=== PATIENT | male | born 1960 | race Caucasian/White ===

== ENCOUNTER 2017-06-19 15:13 | Emergency (ER) | payer SELFPAY ==
[2017-06-19 15:20] VITALS: BP 126/69; PULSE 114; RESP 16; TEMP 98.6; O2SAT 96
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
[2017-06-19] MEDS ORDERED: ACETAMINOPHEN 325 MG TAB PO ONE (17:15)
== END 2017-06-19 17:24 | disposition home or self-care (01) ==
LOC: NEPK 15:13
DX: M79.671 Pain in right foot (principal); M79.672 Pain in left foot; F17.200 Nicotine dependence, unspecified, uncomplicated; Z59.0 Homelessness
CPT/HCPCS: 99281

== ENCOUNTER 2017-08-13 11:57 | Emergency (ER) | payer SELFPAY ==
[2017-08-13 12:21] VITALS: BP 159/84; PULSE 99; RESP 18; TEMP 98.8; O2SAT 99
[2017-08-13] MEDS ORDERED: CEPH-460 PO (13:05)
[2017-08-13] MEDS ORDERED: BACT800T5 PO (13:05)
--- NOTE | 2017-08-13 13:05 | PD ---
HPI Chief Complaint: Skin Problem Time Seen by Provider: 12:30 Travel History International Travel<30 days: No Contact w/Intl Traveler<30days: No Traveled to known affect area: No History of Present Illness HPI 50-year-old male here with possible infected insect bite to his left third digit and left elbow. He denies fever or chills. The areas of present for approximately 4 days. Symptoms severity is mild. No aggravating or alleviating factors. PFSH Past Medical History Medical History: Denies Significant Hx Tetanus Vaccination: Unknown Past Surgical History Abdominal Surgery: Yes (HERNIA) Social History Alcohol Use: Yes Tobacco Use: Yes Substance Use: No Allergies-Medications (Allergen,Severity, Reaction): Coded Allergies: No Known Allergies (Unverified , 08/13/17) Reported Meds & Prescriptions Reported Meds & Active Scripts Active Keflex (Cephalexin) 500 Mg Capsule 500 Mg PO Q6H 10 Days Bactrim DS (Sulfamethoxazole-Trimethoprim) 800-160 Mg Tab 1 Tab PO BID Review of Systems Except as stated in HPI: all other systems reviewed are Neg General / Constitutional: No: Fever Physical Exam Narrative GENERAL: Alert and well-appearing 56-year-old male SKIN: Warm and dry. SKIN: There is an indurated area in the left third digit dorsal aspect which measures about 1 cm in diameter. It is indurated with a central scab. There is a zone of inflammation around it but no lymphangitis. He is able to flex and extend the finger without difficulty. HEAD: Normocephalic. EYES: No injection or drainage. NECK: Supple CARDIOVASCULAR: Regular rate and rhythm RESPIRATORY: Breath sounds equal bilaterally. No accessory muscle use. GASTROINTESTINAL: Abdomen soft, non-tender, nondistended. MUSCULOSKELETAL: No cyanosis, or edema. Data Data Last Documented VS Vital Signs Date Time Temp Pulse Resp B/P (MAP) Pulse Ox O2 Delivery O2 Flow Rate FiO2 08/13/17 12:21 98.8 99 18 159/84 (109) 99 MDM Medical Decision Making Medical Screen Exam Complete: Yes Emergency Medical Condition: Yes Differential Diagnosis Abscess, cellulitis, infected insect bite Narrative Course 56-year-old male here with early abscess to the left third digit. He is nontoxic appearing. He can freely move the digit. The area is indurated without fluctuance. Incision and drainage not warranted at this time. The area has a small central scab which patient reports spontaneously drained. He has no fever chills. He'll be started on Bactrim and Keflex. Diagnosis Primary Impression: Abscess Referrals: [facility] Additional Instructions: Antibiotics as directed. Washing area daily with soap and water. Review of new or worsening symptoms Scripts Cephalexin (Keflex) 500 Mg Capsule 500 MG PO Q6H for Infection for 10 Days, #40 CAP 0 Refills Prov: Fouzia Fields 08/13/17 Sulfamethoxazole-Trimethoprim (Bactrim DS) 800-160 Mg Tab 1 TAB PO BID for Infection, #20 TAB 0 Refills Prov: Fouzia Fields 08/13/17 Disposition: 01 DISCHARGE HOME Condition: Stable Fouzia Fields Aug 13, 2017 13:05
== END 2017-08-13 13:26 | disposition home or self-care (01) ==
LOC: NEPK 11:57 → MERGE 11:57 → NEPK 13:26
DX: L02.512 Cutaneous abscess of left hand (principal); Z72.0 Tobacco use
CPT/HCPCS: 99283

== ENCOUNTER 2017-09-27 08:51 | Observation (INO) | payer SELFPAY ==
[~2017-09-27] VITALS: Ht 172.7 cm; Wt 63.8 kg
[~2017-09-27 08:51] MED LIST: BACT800T5 PO; CEPH-460 PO
[2017-09-27 08:58] VITALS: BP 111/72; PULSE 105; RESP 18; TEMP 97.8; O2SAT 95
[2017-09-27 09:24] VITALS: RESP 16; O2SAT 89
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
[2017-09-27] MEDS ORDERED: SODIUM CHLOR 0.9% 1000 ML INJ 1,000 ML IV ONE (09:30)
[2017-09-27 09:49] LABS: AUTOMATED NEUTROPHIL # 7.8 TH/MM3 (1.8-7.7); BASOPHIL # 0.1 TH/MM3 (0-0.2); BASOPHIL % 0.7 % (0.0-2.0); EOSINOPHIL # 0.1 TH/MM3 (0-0.4); EOSINOPHIL % 0.8 % (0.0-4.0); HEMATOCRIT 40.3 % (39.0-51.0); HEMOGLOBIN 13.5 GM/DL (13.0-17.0); LYMPH % 13.9 % (9.0-44.0); LYMPHOCYTE # 1.4 TH/MM3 (1.0-4.8); MEAN CELL VOLUME 84.4 FL (80.0-100.0); MEAN CORPUSCULAR HEMOGLOBIN 28.3 PG (27.0-34.0); MEAN CORPUSCULAR HGB CONC 33.5 % (32.0-36.0); MEAN PLATELET VOLUME 8.1 FL (7.0-11.0); MONO % 6.9 % (0.0-8.0); MONOCYTE # 0.7 TH/MM3 (0-0.9); NEUT % 77.7 % (16.0-70.0); PLATELET COUNT 361 TH/MM3 (150-450); RED BLOOD COUNT 4.77 MIL/MM3 (4.50-5.90); RED CELL DISTRIBUTION WIDTH 14.3 % (11.6-17.2)
--- NOTE | 2017-09-27 09:52 | RADRPT ---
EXAM DATE/TIME: 09/27/2017 09:32 [facility] COMPARISON: No previous studies available for comparison. INDICATIONS : Seizure today, fall. RADIATION DOSE: 56.35 CTDIvol (mGy) MEDICAL HISTORY : None SURGICAL HISTORY : None. ENCOUNTER: Initial ACUITY: 1 day PAIN SCALE: 3/10 LOCATION: cranial TECHNIQUE: Multiple contiguous axial images were obtained of the head. Using automated exposure control and adj ustment of the mA and/or kV according to patient size, radiation dose was kept as low as reasonably a chievable to obtain optimal diagnostic quality images. DICOM format image data is available electro nically for review and comparison. FINDINGS: CEREBRUM: The ventricles are normal for age. No evidence of midline shift, mass lesion, hemorrhage or acute in farction. No extra-axial fluid collections are seen. POSTERIOR FOSSA: The cerebellum and brainstem are intact. The 4th ventricle is midline. The cerebellopontine angle i s unremarkable. EXTRACRANIAL: The visualized portion of the orbits is intact. SKULL: The calvaria is intact. No evidence of skull fracture. CONCLUSION: Normal examination. Ace Mendez MD on September 27, 2017 at 9:50 Board Certified Radiologist. This report was verified electronically.
--- NOTE | 2017-09-27 09:54 | RADRPT ---
EXAM DATE/TIME: 09/27/2017 09:32 [facility] COMPARISON: No previous studies available for comparison. INDICATIONS : Seizure today, fall. RADIATION DOSE: 18.26 CTDIvol (mGy) MEDICAL HISTORY : None SURGICAL HISTORY : None. ENCOUNTER: Initial ACUITY: 1 day PAIN SCALE: 3/10 LOCATION: neck TECHNIQUE: Volumetric scanning of the cervical spine was performed. Multiplanar reconstructions in the sagittal, coronal and oblique axial planes were performed. Using automated exposure control and adjustment o f the mA and/or kV according to patient size, radiation dose was kept as low as reasonably achievable to obtain optimal diagnostic quality images. DICOM format image data is available electronically f or review and comparison. FINDINGS: VERTEBRAE: Normal vertebral body height. There is discogenic sclerosis and narrowing at the C5-6 and C6-7 levels ALIGNMENT: No evidence of subluxation. C2-C3: The bony spinal canal is normal in size. No evidence of disc bulge or herniation. The neural forami na are bilaterally patent. C3-C4: The bony spinal canal is normal in size. No evidence of disc bulge or herniation. The neural forami na are bilaterally patent. C4-C5: The bony spinal canal is normal in size. No evidence of disc bulge or herniation. The neural forami na are bilaterally patent. C5-C6: The bony spinal canal is normal in size. No evidence of disc bulge or herniation. The neural forami na are bilaterally patent. C6-C7: The bony spinal canal is normal in size. No evidence of disc bulge or herniation. The neural forami na are bilaterally patent. C7-T1: The bony spinal canal is normal in size. No evidence of disc bulge or herniation. The neural forami na are bilaterally patent. CONCLUSION: Normal examination for acute injury. Chronic degenerative disease at the C5-6 and C6-7. Ace Mendez MD on September 27, 2017 at 9:51 Board Certified Radiologist. This report was verified electronically.
--- NOTE | 2017-09-27 09:57 | RADRPT ---
EXAM DATE/TIME: 09/27/2017 09:27 [facility] COMPARISON: No previous studies available for comparison. INDICATIONS : Syncopal episode. MEDICAL HISTORY : None. SURGICAL HISTORY : Hernia repair. Bilateral knee. ENCOUNTER: Initial ACUITY: 1 day PAIN SCORE: 0/10 LOCATION: Bilateral chest FINDINGS: A single view of the chest demonstrates the lungs to be symmetrically aerated without evidence of mas s, infiltrate or effusion. The cardiomediastinal contours are unremarkable. Osseous structures are intact. CONCLUSION: Normal examination. Ace Mendez MD on September 27, 2017 at 9:55 Board Certified Radiologist. This report was verified electronically.
[2017-09-27 09:58] LABS: PROTHROMBIN TIME - PATIENT 10.2 SEC (9.8-11.6)
--- NOTE | 2017-09-27 10:00 | RADRPT ---
EXAM DATE/TIME: 09/27/2017 09:32 [facility] COMPARISON: No previous studies available for comparison. INDICATIONS : Seizure today, fall. RADIATION DOSE: 21.96 CTDIvol (mGy) MEDICAL HISTORY : None SURGICAL HISTORY : None. ENCOUNTER: Initial ACUITY: 1 day PAIN SCORE: 3/10 LOCATION: facial TECHNIQUE: Volumetric scanning of the facial bones was performed. Using automated exposure control and adjustme nt of the mA and/or kV according to patient size, radiation dose was kept as low as reasonably achiev able to obtain optimal diagnostic quality images. DICOM format image data is available electronicall y for review and comparison. FINDINGS: ORBITS: The orbital and infraorbital osseous structures are intact. The retroconal structures have a normal configuration. No radiopaque foreign bodies are seen. NASAL BONE: The maxillary spine are intact. Questionable fracture at the base of the right nasal bone of no clini noah significance ZYGOMATIC ARCHES: Symmetric without evidence of fracture. SINUSES: The maxillary, ethmoid and frontal sinuses are intact. No air-fluid levels seen. NASAL CAVITY: The nasal septum is intact and midline. The lacrimal ducts are intact. SOFT TISSUES: No radiopaque foreign bodies seen. No soft-tissue swelling is seen. INTRACRANIAL: No intracranial air seen. CRIBIFORM PLATE: Grossly intact. CONCLUSION: Normal examination except for questionable nondisplaced fracture at the base of the right nasal bone. Ace Mendez MD on September 27, 2017 at 9:57 Board Certified Radiologist. This report was verified electronically.
[2017-09-27 10:14] LABS: ALBUMIN 3.1 GM/DL (3.4-5.0); ALT (GPT) 25 U/L (12-78); AST (GOT) 28 U/L (15-37); CALCIUM 8.6 MG/DL (8.5-10.1); CHLORIDE 105 MEQ/L (98-107); CREATININE 1.13 MG/DL (0.60-1.30); GLOMERULAR FILTRATION RATE 67 ML/MIN (>89); GLUCOSE,RANDOM 124 MG/DL (74-106); MAGNESIUM 2.6 MG/DL (1.5-2.5); PHOSPHORUS 2.6 MG/DL (2.5-4.9); SODIUM (NA) 136 MEQ/L (136-145)
[2017-09-27 10:15] LABS: ALKALINE PHOSPHATASE 68 U/L (45-117); BLOOD UREA NITROGEN 9 MG/DL (7-18); TOTAL BILIRUBIN ADULT 0.3 MG/DL (0.2-1.0)
[2017-09-27] MEDS ORDERED: SODIUM CHLORIDE 0.9% FLUSH 10 ML FLUSH IV FLUSH PRN (11:00)
[2017-09-27] MEDS ORDERED: ONDANSETRON HCL 4 MG/2 ML VIAL IV PUSH PRN (11:00)
[2017-09-27] MEDS ORDERED: LORazepam 2 MG/ML VIAL IV PUSH PRN (11:00)
[2017-09-27 11:27] VITALS: BP 115/71; PULSE 72; RESP 18; O2SAT 99
[2017-09-27 13:10] VITALS: BP 109/69; PULSE 91; RESP 16; O2SAT 98
--- NOTE | 2017-09-27 15:23 | HHI.HP ---
HPI Service [facility] Hospitalists Primary Care Physician No Primary Care Physician Admission Diagnosis New onset seizure. Diagnoses: Chief Complaint: Seizure Travel History International Travel<30 Days: No Contact w/Intl Traveler <30 Da: No Traveled to Known Affected Are: No History of Present Illness 56-year-old male brought into the emergency room by EMS after reported seizure. Apparently patient was witnessed having generalized tonic-clonic activity by a bystander. He was postictal and had urinary incontinence during the episode. Patient tells me he does not remember the event. He states he does not drink alcohol every day, only occasionally will have one 16 ounce of beer. He denies drug use. He denies feeling lightheadedness, shortness of breath or chest pain. He suffered an abrasion from the event but otherwise no other complaints. Review of Systems Constitutional: DENIES: Fever, Chills Ears, nose, mouth, throat: DENIES: Vertigo Respiratory: DENIES: Shortness of breath Cardiovascular: DENIES: Chest pain, Palpitations Neurologic: COMPLAINS OF: Seizures, DENIES: Headache, Localized weakness Except as stated in HPI: all other systems reviewed are Neg Past Family Social History Past Medical History History of meningitis as an per the patient Spinal stenosis Past Surgical History Bilateral hernia repair Repair of lower jaw after injuries from a dog bite. Reported Medications None Allergies: Coded Allergies: No Known Allergies (Unverified Allergy, Unknown, 09/27/17) Per pt. Family History Reviewed and is found to be noncontributory. Social History Patient admits to smoking cigarettes when he can find them. He admits to drinking alcohol occasionally but denies daily use. He denies illicit drug use. Physical Exam Vital Signs Vital Signs Date Time Temp Pulse Resp B/P (MAP) Pulse Ox O2 Delivery O2 Flow Rate FiO2 09/27/17 13:23 09/27/17 13:10 91 16 109/69 (82) 98 Nasal Cannula 2.00 09/27/17 11:27 72 18 115/71 (86) 99 Nasal Cannula 2.00 09/27/17 09:24 16 89 Nasal Cannula 2.00 09/27/17 09:04 105 18 96 Room Air 09/27/17 08:58 97.8 105 18 111/72 (55) 95 Physical Exam GENERAL: Disheveled male SKIN: Abrasions of the forehead and nose. HEAD: Atraumatic. Normocephalic. No temporal or scalp tenderness. EYES: Pupils equal round and reactive. Extraocular motions intact. No scleral icterus. No injection or drainage. ENT: Nose without bleeding, purulent drainage or septal hematoma. Throat without erythema, tonsillar hypertrophy or exudate. Uvula midline. Airway patent. NECK: Trachea midline. No JVD or lymphadenopathy. Supple, nontender, no meningeal signs. CARDIOVASCULAR: Regular rate and rhythm without murmurs, gallops, or rubs. RESPIRATORY: Clear to auscultation. Breath sounds equal bilaterally. No wheezes , rales, or rhonchi. GASTROINTESTINAL: Abdomen soft, non-tender, nondistended. No hepato-splenomegaly , or palpable masses. No guarding. MUSCULOSKELETAL: Extremities without clubbing, cyanosis, or edema. No joint tenderness, effusion, or edema noted. No calf tenderness. Negative Homans sign bilaterally. NEUROLOGICAL: Awake and alert. Cranial nerves II through XII intact. Motor and sensory grossly within normal limits. Five out of 5 muscle strength in all muscle groups. Normal speech. Laboratory Laboratory Tests Test 09/27/17 09:20 White Blood Count 10.0 Red Blood Count 4.77 Hemoglobin 13.5 Hematocrit 40.3 Mean Corpuscular Volume 84.4 Mean Corpuscular Hemoglobin 28.3 Mean Corpuscular Hemoglobin Concent 33.5 Red Cell Distribution Width 14.3 Platelet Count 361 Mean Platelet Volume 8.1 Neutrophils (%) (Auto) 77.7 Lymphocytes (%) (Auto) 13.9 Monocytes (%) (Auto) 6.9 Eosinophils (%) (Auto) 0.8 Basophils (%) (Auto) 0.7 Neutrophils # (Auto) 7.8 Lymphocytes # (Auto) 1.4 Monocytes # (Auto) 0.7 Eosinophils # (Auto) 0.1 Basophils # (Auto) 0.1 CBC Comment DIFF FINAL Differential Comment Prothrombin Time 10.2 Prothromb Time International Ratio 1.0 Activated Partial Thromboplast Time 24.5 Blood Urea Nitrogen 9 Creatinine 1.13 Random Glucose 124 Total Protein 7.0 Albumin 3.1 Calcium Level 8.6 Phosphorus Level 2.6 Magnesium Level 2.6 Alkaline Phosphatase 68 Aspartate Amino Transf (AST/SGOT) 28 Alanine Aminotransferase (ALT/SGPT) 25 Total Bilirubin 0.3 Sodium Level 136 Potassium Level 3.8 Chloride Level 105 Carbon Dioxide Level 18.0 Anion Gap 13 Estimat Glomerular Filtration Rate 67 Thyroid Stimulating Hormone 3rd Gen 1.320 Ethyl Alcohol Level LESS THAN 3 Result Diagram: 09/27/1791909/27/17919 Imaging Last Impressions Maxillofacial CT 09/27/17916 Signed Impressions: Service Date/Time: September 09:32 - CONCLUSION: Normal examination except for questionable nondisplaced fracture at the base of the right nasal bone. Ace Mendez MD Head CT 09/27/17916 Signed Impressions: Service Date/Time: September 09:32 - CONCLUSION: Normal examination. Ace Mendze MD Chest X-Ray 09/27/17916 Signed Impressions: Service Date/Time: September 09:27 - CONCLUSION: Normal examination. cAe Mendez MD Cervical Spine CT 09/27/17916 Signed Impressions: Service Date/Time: September 09:32 - CONCLUSION: Normal examination for acute injury. Chronic degenerative disease at the C5-6 and C6- 7. MD Wily Christy VTE Risk Assessment Wily VTE Risk Assessment: No/Low Risk (score <= 1) Caprini Risk Assessment Model Point Value = 1 Point Value = 2 Point Value = 3 Point Value = 5 Age 41-60 Minor surgery BMI > 25 kg/m2 Swollen legs Varicose veins or History of unexplained or recurrent spontaneous Oral contraceptives or hormone replacement Sepsis (< 1 month) Serious lung disease, including pneumonia (< 1 month) Abnormal pulmonary function Acute myocardial infarction Congestive heart failure (< 1 month) History of inflammatory bowel disease Medical patient at bed rest Age 61-74 Arthroscopic surgery Major open surgery (> 45 min) Laparoscopic surgery (> 45 min) Malignancy Confined to bed (> 72 hours) Immobilizing plaster cast Central venous access Age >= 75 History of VTE Family history of VTE Factor V Leiden Prothrombin [id number] Lupus anticoagulant Anticardiolipin antibodies Elevated serum homocysteine Heparin-induced thrombocytopenia Other congenital or acquired thrombophilia Stroke (< 1 month) Elective arthroplasty Hip, pelvis, or leg fracture Acute spinal cord injury (< 1 month) Prophylaxis Regimen Total Risk Factor Score Risk Level Prophylaxis Regimen 0-1 Low Early ambulation 2 Moderate Order ONE of the following: *Sequential Compression Device (SCD) *Heparin 5000 units SQ BID 3-4 Higher Order ONE of the following medications: *Heparin 5000 units SQ TID *Enoxaparin/Lovenox 40 mg SQ daily (WT < 150 kg, CrCl > 30 mL/min) *Enoxaparin/Lovenox 30 mg SQ daily (WT < 150 kg, CrCl > 10-29 mL/min) *Enoxaparin/Lovenox 30 mg SQ BID (WT < 150 kg, CrCl > 30 mL/min) AND/OR *Sequential Compression Device (SCD) 5 or more Highest Order ONE of the following medications: *Heparin 5000 units SQ TID (Preferred with Epidurals) *Enoxaparin/Lovenox 40 mg SQ daily (WT < 150 kg, CrCl > 30 mL/min) *Enoxaparin/Lovenox 30 mg SQ daily (WT < 150 kg, CrCl > 10-29 mL/min) *Enoxaparin/Lovenox 30 mg SQ BID (WT < 150 kg, CrCl > 30 mL/min) AND *Sequential Compression Device (SCD) Assessment and Plan Problem List: (1) Seizure ICD Code: R56.9 - Unspecified convulsions Status: Acute Plan: Possible seizure per report. No history of seizure. He does drink alcohol but he reports this is infrequent. Head CT, cervical spine CT with no acute findings Admit for observation. Seizure precautions EEG, telemetry Consult neurology Check EtOH level and urine drug screen Maisha Wade MD Sep 27, 2017 15:23
[2017-09-27 16:00] VITALS: BP 121/57; PULSE 90; RESP 18; TEMP 97.9; O2SAT 97
--- NOTE | 2017-09-27 16:15 | EKG ---
Date Performed: 09/27/2017 Time Performed: 09:17:18 PTAGE: 56 years EKG: SINUS TACHYCARDIA POSSIBLE LEFT ATRIAL ENLARGEMENT ST DEVIATION AND MODERATE T-WAVE ABNORMA LITY, CONSIDER LATERAL ISCHEMIA ABNORMAL ECG INTERPRETATION BASED ON A DEFAULT AGE OF 40 YEARS NO PREVIOUS TRACING DOCTOR: Colton Kendall Interpretating Date/Time 09/27/2017 16:14:16
--- NOTE | 2017-09-27 16:17 | MB ---
cc: Marilee Kline MD DATE: 09/27/2017 REASON FOR CONSULTATION: Possible seizures. HISTORY OF PRESENT ILLNESS: A 56-year-old man apparently homeless, was witnessed somewhere along [address] and [address]. Per patient, he was walking there in the evening, apparently was witnessed per chart notes by bystanders having a generalized tonic-clonic seizure. He states he has never had a seizure. He does not remember feeling ill, dizzy. No chest pain, shortness of breath. The episode lasted for unknown length of time, apparently noted to be postictal afterwards with some urinary incontinence. His Accu-Chek was 149. He came in I am told lethargic, but was answering questions, denying any type of pain. He has a history per chart of meningitis as a baby, has had hernia repair, jaw repair. SOCIAL HISTORY: He states that he drinks rarely, maybe 1-2 drinks, but not daily. Smokes up to a pack a day. He denies drugs. ALLERGIES: NONE REPORTED. MEDICATIONS: No active medicines. PHYSICAL EXAMINATION: VITAL SIGNS: His temperature is 97.8, pulse 91, respiratory rate 16, blood pressure 109/69, saturating at 98 percent on room air. GENERAL: He is awake and alert. NECK: Supple. HEART: Regular. NEUROLOGIC: Fluent. He has abrasions over his forehead and facial region, probably from falling. Pupils reactive. Tongue midline. There is no laceration of the tongue. Motor: He moves everything equally. No tremors. Gait is withheld. He has been ambulating in the room, I am told. LABORATORY DATA: Reviewed. IMAGING: Head unremarkable for any acute findings. Maxillofacial CT: Questionable nondisplaced fracture of the base of the right nasal bone. Chest x-ray normal. Cervical spine CT: Degenerative disease, C5-C6, C6-C7, no fracture. IMPRESSION/PLAN: Possible seizure. The patient has no recall of what occurred. Unfortunately, denies any history of chronic alcohol abuse. Denies any history of epilepsy. Recommend getting an EEG, monitoring his neuro status. Ativan p.r.n. if he should have a witnessed seizure. I do not think at this point in time, an antiepileptic is indicated unless he has another event. Watch his heart rate, monitor his vitals, look for any dysrhythmia and if stable and EEG is unremarkable, discharge planning in the next 24 hours. MD SILVINO Paiz/CAROLYN , 04:01 PM , 04:17 PM
[2017-09-27 20:00] VITALS: BP 112/58; PULSE 93; RESP 16; TEMP 97.9; O2SAT 95
[2017-09-27] MEDS: SODIUM CHLORIDE 0.9% FLUSH 10 ML FLUSH IV FLUSH SCH (23:47)
[2017-09-28] VITALS (7 sets, daily range): BP systolic 95–113; BP diastolic 50–68; PULSE 68–82; RESP 18–19; TEMP 97.7–98.9; O2SAT 94–98
[2017-09-28 08:25] LABS: BICARBONATE 24.2 MEQ/L (21.0-32.0); CALCIUM 8.1 MG/DL (8.5-10.1); CREATININE 0.89 MG/DL (0.60-1.30)
[2017-09-28] MEDS ORDERED: PNEUMOCOCCAL POLYVALENT INJ 25 MCG/0.5 ML SYR IM ONE (10:00)
[2017-09-28] MEDS ORDERED: INFLUENZA VIRUS VACCINE (QUADRIVALENT) 0.5 ML SYR IM ONE (10:00)
[2017-09-28] MEDS: SODIUM CHLORIDE 0.9% FLUSH 10 ML FLUSH IV FLUSH SCH ×2 (10:48→21:07)
[2017-09-28 12:43] LABS: BILIRUBIN, URINE NEG (NEG); BLOOD, URINE NEG (NEG); GLUCOSE,URINE NEG (NEG); KETONE, URINE NEG (NEG); MUCUS URINE FEW /lpf (OCC); NITRITE,URINE NEG (NEG); URINE COLOR LIGHT-YELLOW (YELLW/STRAW); URINE LEUKOCYTE ESTERASE NEG (NEG)
--- NOTE | 2017-09-28 15:02 | MG ---
cc: Bayron Schaefer MD, PhD DATE OF STUDY: 09/27/2017 TEST NUMBER: [id number] TECHNIQUE: This is a 17-channel EEG. DESCRIPTION: The background rhythm is a symmetrical alpha rhythm frequency 8-9 Hz. There is sharp activity identified in bilateral parietal area with some degree of phase reversal. This occurs occasionally throughout the tracing, then there is some mild slowing in the theta range. No other abnormalities were identified. INTERPRETATION: Abnormal study, consistent with a probable ictal focus bilaterally. Bayron Schaefer MD, PhD AMBER/JUAN CARLOS , 02:52 PM , 03:01 PM
--- NOTE | 2017-09-28 18:26 | HHI.PR ---
Subjective Remarks Patient reports he is doing okay. Discussed with RN. Some periods of confusions but no reported seizure activities. Objective Vitals Vital Signs Date Time Temp Pulse Resp B/P (MAP) Pulse Ox O2 Delivery O2 Flow Rate FiO2 09/28/17 16:00 98.6 68 18 113/68 (83) 97 09/28/17 12:00 97.7 69 18 95/50 (65) 98 09/28/17 08:00 98.3 71 18 111/63 (79) 94 09/28/17 01:10 98.9 72 19 95/58 (70) 95 09/27/17 20:00 97.9 93 16 112/58 (76) 95 I/O 09/27/17 09/27/17 09/27/17 09/28/17 09/28/17 09/28/17 07:00 15:00 23:00 07:00 15:00 23:00 Intake Total 1000 ml Output Total 500 ml Balance 1000 ml -500 ml Intake IV Total 1000 ml Output Urine Total 500 ml Result Diagram: 09/27/17 0920 09/28/17 0720 Objective Remarks GENERAL: Disheveled male in no acute distress CARDIOVASCULAR: Normal rate and regular rhythm without murmurs, gallops, or rubs. RESPIRATORY: Good respiratory efforts. Breath sounds equal and clear to auscultation bilaterally. GASTROINTESTINAL: Abdomen soft, non-tender, non-distended. Normal active bowel sounds MUSCULOSKELETAL: Extremities without cyanosis, or edema. NEURO: Alert & Oriented x4 to person, place, time, situation. Moves all ext x4 PSYCH: Appropriate mood and affect. A/P Problem List: (1) Seizure ICD Code: R56.9 - Unspecified convulsions Status: Acute Plan: Possible seizure per report. No history of seizure. He does drink alcohol but he reports this is infrequent. Head CT, cervical spine CT with no acute findings Seizure precautions EEG abnormal. Deferred to neurology whether or not he would benefit from antiepileptics. EtOH level and urine drug screen negative Continue to monitor neuro status. RN reports some periods of confusion. Could be postconcussive syndrome. Check B12, folate and TSH. Maisha Wade MD Sep 28, 2017 18:26
[2017-09-28 20:19] LABS: FOLATE 8.9 NG/ML (3.1-17.5)
[2017-09-29] VITALS (10 sets, daily range): BP systolic 110–128; BP diastolic 58–81; PULSE 69–106; RESP 18–20; TEMP 97.6–99.4; O2SAT 95–100
[2017-09-29] MEDS: SODIUM CHLORIDE 0.9% FLUSH 10 ML FLUSH IV FLUSH SCH ×2 (07:34→21:49)
[2017-09-29] MEDS: levETIRAcetam 500 MG TAB PO SCH ×2 (12:20→21:49)
[2017-09-29] MEDS ORDERED: LEVE500 PO (14:55)
--- NOTE | 2017-09-29 14:56 | HHI.PR ---
Subjective Remarks Patient reports he is doing okay. Still having some periods of confusions during our conversation. Objective Vitals Vital Signs Date Time Temp Pulse Resp B/P (MAP) Pulse Ox O2 Delivery O2 Flow Rate FiO2 09/29/17 12:45 106 09/29/17 11:31 99.4 88 20 110/66 (81) 96 09/29/17 09:46 69 09/29/17 08:05 97.8 78 19 112/72 (85) 96 09/29/17 04:43 98.5 74 18 124/70 (88) 95 09/29/17 00:44 98.4 77 18 118/58 (78) 95 09/29/17 00:00 89 09/28/17 21:00 79 09/28/17 20:03 97.7 78 18 96/53 (67) 95 09/28/17 18:01 82 09/28/17 16:00 98.6 68 18 113/68 (83) 97 I/O 09/28/17 09/28/17 09/28/17 09/29/17 09/29/17 09/29/17 07:00 15:00 23:00 07:00 15:00 23:00 # Voids 3 2 Result Diagram: 09/27/17 0920 09/28/17 0720 Objective Remarks GENERAL: Disheveled male in no acute distress CARDIOVASCULAR: Normal rate and regular rhythm without murmurs, gallops, or rubs. RESPIRATORY: Good respiratory efforts. Breath sounds equal and clear to auscultation bilaterally. GASTROINTESTINAL: Abdomen soft, non-tender, non-distended. Normal active bowel sounds MUSCULOSKELETAL: Extremities without cyanosis, or edema. NEURO: Alert & Oriented x4 to person, place, time, situation. Moves all ext x4. Some periods of confusion and tangential conversations. PSYCH: Appropriate mood and affect. A/P Problem List: (1) Seizure ICD Code: R56.9 - Unspecified convulsions Status: Acute Plan: Possible seizure per report. No history of seizure. He does drink alcohol but he reports this is infrequent. Head CT, cervical spine CT with no acute findings Seizure precautions EtOH level and urine drug screen negative Continue to monitor neuro status. some periods of confusion. Could be postconcussive syndrome. EEG abnormal. Patient started on Keppra per neurology. Consult case management to assist with discharge medications. Patient is homeless. B12, folate, TSH unremarkable. Maisha Wade MD Sep 29, 2017 14:56
[2017-09-30 04:38] VITALS: BP 117/62; PULSE 75; RESP 18; TEMP 98.1; O2SAT 96
[2017-09-30 07:37] VITALS: BP 101/63; PULSE 80; RESP 18; TEMP 98.3; O2SAT 95
[2017-09-30] MEDS: levETIRAcetam 500 MG TAB PO SCH (07:39)
[2017-09-30] MEDS: SODIUM CHLORIDE 0.9% FLUSH 10 ML FLUSH IV FLUSH SCH (07:39)
[2017-09-30 08:26] VITALS: PULSE 93
--- NOTE | 2017-09-30 08:50 | HHI.DCPOC ---
Discharge Care Plan Diagnosis: (1) Seizure Goals to Promote Your Health * To prevent worsening of your condition and complications * To maintain your health at the optimal level Directions to Meet Your Goals Take your medications as prescribed Follow your dietary instruction Follow activity as directed Keep your appointments as scheduled Take your immunizations and boosters as scheduled If your symptoms worsen call your PCP, if no PCP go to Urgent Care Center or Emergency Room Smoking is Dangerous to Your Health. Avoid second hand smoke Call the 24-hour hour crisis hotline for domestic abuse at Maisha Wade MD Sep 30, 2017 08:50
--- NOTE | 2017-09-30 08:51 | HHI.DS ---
Discharge Summary Admission Date Sep 27, 2017 at 10:48 Discharge Date: Sep 30, 2017 Admitting Diagnosis New onset seizure. (1) Seizure ICD Code: R56.9 - Unspecified convulsions Status: Acute Procedures None Brief History - From Admission 56-year-old male brought into the emergency room by EMS after reported seizure. Apparently patient was witnessed having generalized tonic-clonic activity by a bystander. He was postictal and had urinary incontinence during the episode. Patient tells me he does not remember the event. He states he does not drink alcohol every day, only occasionally will have one 16 ounce of beer. He denies drug use. He denies feeling lightheadedness, shortness of breath or chest pain. He suffered facial abrasion from the event but otherwise no other complaints. CBC/BMP: 09/27/17 0920 09/28/17 0720 Significant Findings Laboratory Tests Test 09/27/17 09:20 09/28/17 07:20 09/28/17 11:00 09/28/17 17:20 Neutrophils (%) (Auto) 77.7 % (16.0-70.0) Neutrophils # (Auto) 7.8 TH/MM3 (1.8-7.7) Random Glucose 124 MG/DL (74-106) Albumin 3.1 GM/DL (3.4-5.0) Magnesium Level 2.6 MG/DL (1.5-2.5) Carbon Dioxide Level 18.0 MEQ/L (21.0-32.0) Estimat Glomerular Filtration Rate 67 ML/MIN (>89) 88 ML/MIN (>89) Calcium Level 8.1 MG/DL (8.5-10.1) Chloride Level 109 MEQ/L (98-107) Urine Mucus FEW /lpf (OCC) Imaging Last Impressions Maxillofacial CT 09/27/17916 Signed Impressions: Service Date/Time: September 09:32 - CONCLUSION: Normal examination except for questionable nondisplaced fracture at the base of the right nasal bone. Ace Mendez MD Head CT 09/27/17916 Signed Impressions: Service Date/Time: September 09:32 - CONCLUSION: Normal examination. Ace Mendez MD Chest X-Ray 09/27/17916 Signed Impressions: Service Date/Time: September 09:27 - CONCLUSION: Normal examination. Ace Mendez MD Cervical Spine CT 09/27/17916 Signed Impressions: Service Date/Time: September 09:32 - CONCLUSION: Normal examination for acute injury. Chronic degenerative disease at the C5-6 and C6- 7. Ace Mendez MD PE at Discharge GENERAL: Disheveled male in no acute distress CARDIOVASCULAR: Normal rate and regular rhythm without murmurs, gallops, or rubs. RESPIRATORY: Good respiratory efforts. Breath sounds equal and clear to auscultation bilaterally. GASTROINTESTINAL: Abdomen soft, non-tender, non-distended. Normal active bowel sounds MUSCULOSKELETAL: Extremities without cyanosis, or edema. NEURO: Alert & Oriented x4 to person, place, time, situation. Moves all ext x4. Some periods of confusion and tangential conversations. PSYCH: Appropriate mood and affect. Pt update on day of discharge Patient reports he is feeling ok today. We discussed discharge planning at length and the need to be compliant with antiseizure medications. Hospital Course Possible seizure per report. No history of seizure. He does drink alcohol but he reports this is infrequent. Head CT, cervical spine CT with no acute findings EtOH level and urine drug screen negative EEG abnormal. Patient started on Keppra per neurology. Prescription written. DW case management to assist the patient in getting the medication. B12, folate, TSH unremarkable. Pt Condition on Discharge: Good Discharge Disposition: Discharge Home Discharge Time: <= 30 minutes Discharge Instructions DIET: Follow Instructions for: As Tolerated, No Restrictions Activities you can perform: Regular-No Restrictions Other Activity Instructions: No driving, no swimming, no climbing height, do not operate heavy machinery. Follow up Referrals: PCP Follow-up - 2 Weeks New Medications: Levetiracetam (Keppra) 500 Mg Tab 500 MG PO BID, #60 TAB Discontinued Medications: Cephalexin (Keflex) 500 Mg Capsule 500 MG PO Q6H for Infection for 10 Days, #40 CAP 0 Refills Sulfamethoxazole-Trimethoprim (Bactrim DS) 800-160 Mg Tab 1 TAB PO BID for Infection, #20 TAB 0 Refills Maisha Wade MD Sep 30, 2017 08:51
[2017-09-30] MEDS ORDERED: MULTIVITAMIN TAB PO SCH (09:00)
== END 2017-09-30 17:34 | disposition home or self-care (01) ==
LOC: NEPC 08:51 → NEDA 10:48 → INTOOBSV 10:48 → NEDH 13:04 → NEDA 13:05 → N05A 13:29
PROVIDERS: ADMIT Family Medicine; ATTEND Family Medicine
DX: R56.9 Unspecified convulsions (principal); S00.31XA Abrasion of nose, initial encounter; S00.81XA Abrasion of other part of head, initial encounter; R00.0 Tachycardia, unspecified; R94.01 Abnormal electroencephalogram [EEG]; F17.210 Nicotine dependence, cigarettes, uncomplicated; Z59.0 Homelessness; Z23 Encounter for immunization; X58.XXXA Exposure to other specified factors, initial encounter
CPT/HCPCS: 70450; 70486; 71045; 72125; 80048; 80053; 80307; 81001; 82607; 82746; 83735; 84100; 84443; 85025; 85610; 85730; 90471; 90472; 90686; 90732; 93005; 95819; 96360; 99285; G0378; J7030; G0008; G0009; Q2038

== ENCOUNTER 2018-04-25 13:18 | Observation (INO) ==
[2018-04-25] MEDS ORDERED: Sod Chloride 0.9% Inj 1,000 ML IV.SIG SCH (13:30)
--- NOTE | 2018-04-25 13:41 | ED ---
HPI General Chief Complaint: Weakness Stated Complaint: Poss seizure Time Seen by Provider: 04/25/18 13:30 Source: patient and EMS Mode of arrival: EMS Limitations: altered mental status History of Present Illness HPI narrative: Patient is a 57-year-old male presenting to the emergency department for evaluation of possible seizure, altered mental status. [place] homeless [place], a friend stated to EMS that patient stood up, he then fell to the ground and started shaking. Patient does not remember the event. He presents complaining of being dehydrated and tired. He denies any illicit drug use, he denies any regular alcohol use. He denies any chest pain, abdominal pain, nausea, vomiting, headache, visual changes. He further denies any fever or chills. He denies any dysuria or change in his bowel habits. Patient denies any significant past medical history other than meningitis as a child and disc disease in his back. Symptom onset was sudden. Unknown exacerbating factors. MD complaint: Reports altered mental status Onset (ago): minute(s) Timing confirmed by: other Severity: moderate Consistency of symptoms: waxing and waning Context: Reports history of similar presentation Associated symptoms: Reports loss of appetite Related Data Home Medications Medication Instructions Recorded Confirmed No Known Home Medications 04/25/18 04/25/18 Allergies Allergy/AdvReac Type Severity Reaction Status Date / Time No Known Allergies Allergy Verified 04/25/18 13:35 Review of Systems ROS: all other systems reviewed are negative PMFSH History History Provided By: Patient and Unit Director / EMT Medical History Medical History Meningitis spinal (Acute) Seizure (Acute) Social History Social History Substance History: No History of Abuse Smoking Status: Current every day smoker Tobacco Type: Cigarettes How Often Do You Have a Drink Containing Alcohol: Never Recent Travel in [facility] within the Last 8 Weeks: No Recent Out of Country Travel within the Last 8 Weeks: No Exam Narrative Exam Narrative: GENERAL: Disheveled, alert, disoriented male. Presenting in no acute distress. SKIN: Focused skin assessment warm/dry. HEAD: Atraumatic. Normocephalic. EYES: Pupils equal and round. No scleral icterus. No injection or drainage. ENT: No nasal bleeding or discharge. Mucous membranes pink and moist. NECK: Trachea midline. No JVD. CARDIOVASCULAR: Tachycardic. No murmur appreciated. RESPIRATORY: No accessory muscle use. Clear to auscultation. Breath sounds equal bilaterally. GASTROINTESTINAL: Abdomen soft, non-tender, nondistended. Hepatic and splenic margins not palpable. MUSCULOSKELETAL: No obvious deformities. No clubbing. No cyanosis. No edema. NEUROLOGICAL: Awake and alert, oriented to self. No obvious cranial nerve deficits. Motor grossly within normal limits. Normal speech. PSYCHIATRIC: Appropriate mood and affect; insight and judgment normal. Course Initial Documented Vital Signs Temperature 98.4 F 04/25/18 13:35 Pulse Rate 113 H 04/25/18 13:35 Respiratory Rate 22 04/25/18 13:35 Blood Pressure 128/63 04/25/18 13:35 Pulse Oximetry 92 L 04/25/18 13:35 Last Documented Vital Signs Temperature 98.4 F 04/25/18 13:35 Pulse Rate 82 04/25/18 16:54 Respiratory Rate 24 04/25/18 16:54 Blood Pressure 113/68 04/25/18 16:54 Pulse Oximetry 94 L 04/25/18 16:54 Medical Decision Making SADAF Attestation SADAF supervised visit: Yes Attestation: I, Dr. Weinberg, have reviewed the advance practice practitioner's documentation and am in agreement, met with the patient face to face, made the diagnosis, and the medical decision making was done by me. *My assessment and Findings: Patient seen and evaluated with PA, please see PA note for further details. He is here after seizure witnessed by friend. He has had previous seizure several months ago, seen by neurology, and they had put him on Keppra but the patient is not taking any seizure medications now. He was disoriented and lethargic initially but currently on my evaluation several hours later is appearing more awake, but still disoriented. Lab work is reviewed and is fairly unremarkable. I suspect that this is a breakthrough seizure. At this point, plan would be to admit the patient for further observation since he has not becoming completely oriented after several hours of observation in the ER. MDM Narrative Medical decision making narrative: Patient is a 57-year-old male that presented to the emergency department after having what appeared to be a witnessed seizure. Patient appears to be postictal on arrival, labs and imaging ordered and pending. Patient was tachycardic on arrival, heart rate normalized. Labs reviewed no acute findings. CT scan of the brain shows no acute findings. CTA is negative for pulmonary embolus, shows mild emphysema. Chest x-ray showed pulmonary venous hypertension. Alcohol level was normal. Patient was given loading dose of Keppra. He has had no further seizure activity while in the emergency department however he remains postictal. At this time patient will be admitted under observation. Medical Screen Exam Complete: Yes Emergency Medical Condition: Yes Differential Diagnosis Differential Diagnosis: Seizure vs arrhthmia vs subatance abuse vs metabolic abnormality vs other Medical Records Medical records reviewed: Yes I reviewed the patient's medical records. Pt had similar presentation in September 2017. He was admitted and had an abnormal EEG and was started on Keppra. Drug and alcohol screen were negative. Pt is not currently taking any medications. Lab Data Lab results reviewed: Yes I reviewed the patient's lab results. Result diagrams: 04/25/18 13:47 04/25/18 13:47 Lab Results 04/25/18 04/25/18 04/25/18 Range/Units 13:47 13:47 13:47 WBC 11.6 H (4.0-11.0) th/mm3 RBC 4.65 (4.50-5.90) mil/mm3 Hgb 13.5 (13.0-17.0) gm/dL Hct 40.3 (39.0-51.0) % MCV 86.5 (80.0-100.0) fL MCH 28.9 (27.0-34.0) pg MCHC 33.4 (32.0-36.0) % RDW 15.1 (11.6-17.2) % Plt Count 322 (150-450) th/mm3 MPV 8.7 (7.0-11.0) fL Neut % (Auto) 68.4 (16.0-70.0) % Lymph % (Auto) 18.2 (9.0-44.0) % [place] % (Auto) 12.0 H (0.0-8.0) % Eos % (Auto) 1.0 (0.0-4.0) % Baso % (Auto) 0.4 (0.0-2.0) % Neut # (Auto) 8.0 H (1.8-7.7) th/mm3 Lymph # (Auto) 2.1 (1.0-4.8) th/mm3 [place] # (Auto) 1.4 H (0.0-0.9) th/mm3 Eos # (Auto) 0.1 (0.0-0.4) th/mm3 Baso # (Auto) 0.0 (0.0-0.2) th/mm3 WBC Differential . Differential Comment Auto diff final PT 9.7 L (9.8-11.6) sec INR 1.0 Ratio APTT 22.3 L (23.4-31.7) sec Sodium 140 (136-145) meq/L Potassium 3.8 (3.5-5.1) meq/L Chloride 108 H (98-107) meq/L Carbon Dioxide 16.2 L (21.0-32.0) meq/L Anion Gap 16 H (5-15) meq/L BUN 19 H (7-18) mg/dL Creatinine 1.05 (0.60-1.30) mg/dL Estimated GFR 72 L (>89) mL/min Random Glucose 86 (74-106) mg/dL Lactic Acid (0.4-2.0) mmol/L Calcium 8.8 (8.5-10.1) mg/dL Magnesium 2.6 H (1.5-2.5) mg/dL Total Bilirubin 0.2 (0.2-1.0) mg/dL AST 19 (15-37) U/L ALT 20 (12-78) U/L Alkaline Phosphatase 68 (45-117) U/L Ammonia (11-32) mcmol/L Total Creatine Kinase 271 (39-308) U/L Troponin I Less than 0.02 L (0.02-0.05) ng/mL B-Natriuretic Peptide (0-100) pg/mL Total Protein 7.4 (6.4-8.2) g/dL Albumin 3.2 L (3.4-5.0) g/dL TSH 1.970 (0.358-3.740) uIU/mL Serum Alcohol Less than 3 (0-5) mg/dL 04/25/18 04/25/18 04/25/18 Range/Units 13:47 14:50 14:50 WBC (4.0-11.0) th/mm3 RBC (4.50-5.90) mil/mm3 Hgb (13.0-17.0) gm/dL Hct (39.0-51.0) % MCV (80.0-100.0) fL MCH (27.0-34.0) pg MCHC (32.0-36.0) % RDW (11.6-17.2) % Plt Count (150-450) th/mm3 MPV (7.0-11.0) fL Neut % (Auto) (16.0-70.0) % Lymph % (Auto) (9.0-44.0) % [place] % (Auto) (0.0-8.0) % Eos % (Auto) (0.0-4.0) % Baso % (Auto) (0.0-2.0) % Neut # (Auto) (1.8-7.7) th/mm3 Lymph # (Auto) (1.0-4.8) th/mm3 [place] # (Auto) (0.0-0.9) th/mm3 Eos # (Auto) (0.0-0.4) th/mm3 Baso # (Auto) (0.0-0.2) th/mm3 WBC Differential Differential Comment PT (9.8-11.6) sec INR Ratio APTT (23.4-31.7) sec Sodium (136-145) meq/L Potassium (3.5-5.1) meq/L Chloride (98-107) meq/L Carbon Dioxide (21.0-32.0) meq/L Anion Gap (5-15) meq/L BUN (7-18) mg/dL Creatinine (0.60-1.30) mg/dL Estimated GFR (>89) mL/min Random Glucose (74-106) mg/dL Lactic Acid 1.0 (0.4-2.0) mmol/L Calcium (8.5-10.1) mg/dL Magnesium (1.5-2.5) mg/dL Total Bilirubin (0.2-1.0) mg/dL AST (15-37) U/L ALT (12-78) U/L Alkaline Phosphatase (45-117) U/L Ammonia 19 (11-32) mcmol/L Total Creatine Kinase (39-308) U/L Troponin I (0.02-0.05) ng/mL B-Natriuretic Peptide 34 (0-100) pg/mL Total Protein (6.4-8.2) g/dL Albumin (3.4-5.0) g/dL TSH (0.358-3.740) uIU/mL Serum Alcohol (0-5) mg/dL Imaging Data Radiologist's impression: Chest X-Ray 04/25/18 13:30 CONCLUSION: Prominence in interstitium likely related to pulmonary venous hypertension or mild edema. Some increased density could be secondary to compressive changes given the poor inspiratory effort. Head CT 04/25/18 13:30 CONCLUSION: Negative noncontrast head CT. . Abdomen X-Ray 04/25/18 13:33 CONCLUSION: Nonspecific 0.5 cm calcification at the left pelvis. Degenerative change in the lower lumbar spine. Chest CTA 04/25/18 14:19 CONCLUSION: 1. No pulmonary embolus. 2. Minimal dependent atelectasis of both bases. No pneumonia. 3. Mild emphysema. 4. Coronary artery calcification. Discharge Plan Discharge Disposition Patient Disposition: 30 Still Patient Discharge Condition Condition: Stable Discharge Details Diagnosis: Seizure, Post-ictal state Physicians Team ED Provider: Frances Weinberg ED Midlevel Provider: Vicki Alvarez Primary Care Provider: Primary Care Jagruti Dickson Attending Provider: Elaine Palacios Other Providers: Ricardo Mares Status ED Status: Admitted Observation Patient
--- NOTE | 2018-04-25 14:10 | XR ---
EXAM DATE: 04/25/2018 2:05 PM EST AGE/SEX: 57 years / Male INDICATIONS: Short of Breath CLINICAL DATA: This is the patient's initial encounter. Patient reports that signs and symptoms have been present for 1 day and indicates a pain score of 0/10. MEDICAL/SURGICAL HISTORY: None. None. COMPARISON: [facility] – [place], CHEST SINGLE AP, 09/27/2017. . FINDINGS: The study is taken with a poor inspiratory effort. The heart size is normal. There is mild diffuse pr ominence of the interstitial markings. Focal alveolar consolidation is not seen. Significant effusion is not seen. CONCLUSION: Prominence in interstitium likely related to pulmonary venous hypertension or mild edema. Some increa sed density could be secondary to compressive changes given the poor inspiratory effort. Electronically signed by: Kiet Deutsch MD 04/25/2018 2:09 PM EST
--- NOTE | 2018-04-25 14:13 | XR ---
EXAM DATE: 04/25/2018 2:04 PM EST AGE/SEX: 57 years / Male INDICATIONS: Abdominal pain CLINICAL DATA: This is the patient's initial encounter. Patient reports that signs and symptoms have been present for 1 day and indicates a pain score of 0/10. MEDICAL/SURGICAL HISTORY: None. None. COMPARISON: No prior exams available for comparison. FINDINGS: The abdominal bowel gas pattern is normal. There is a 0.5 cm calcification seen in the lower left p caroline. This is nonspecific. It could be a phlebolith or a distal ureteral stone. There is degenerativ e change in the lower lumbar spine. Free air is not seen. CONCLUSION: Nonspecific 0.5 cm calcification at the left pelvis. Degenerative change in the lower lumbar spine. Electronically signed by: Kiet Deutsch MD 04/25/2018 2:11 PM EST
[2018-04-25 14:16] LABS: Baso % (Auto) 0.4 % (0.0-2.0); Eos # (Auto) 0.1 th/mm3 (0.0-0.4); Hematocrit 40.3 % (39.0-51.0); Hemoglobin 13.5 gm/dL (13.0-17.0); Lymph # (Auto) 2.1 th/mm3 (1.0-4.8); Lymph % (Auto) 18.2 % (9.0-44.0); Mean Corpuscular HGB Conc 33.4 % (32.0-36.0); Mean Corpuscular Hemoglobin 28.9 pg (27.0-34.0); Mean Corpuscular Volume 86.5 fL (80.0-100.0); Mean Platelet Volume 8.7 fL (7.0-11.0); Mono # (Auto) 1.4 th/mm3 (0.0-0.9); Neut % (Auto) 68.4 % (16.0-70.0); Platelet Count 322 th/mm3 (150-450); Red Blood Count 4.65 mil/mm3 (4.50-5.90); Red Cell Distribution Width 15.1 % (11.6-17.2); White Blood Count 11.6 th/mm3 (4.0-11.0)
[2018-04-25 14:24] LABS: Activated Partial Thrombo Time 22.3 sec (23.4-31.7); Prothrombin Time 9.7 sec (9.8-11.6)
[2018-04-25 14:35] LABS: Alanine Aminotransferase 20 U/L (12-78); Albumin 3.2 g/dL (3.4-5.0); Anion Gap 16 meq/L (5-15); Aspartate Aminotransferase 19 U/L (15-37); Calcium 8.8 mg/dL (8.5-10.1); Carbon Dioxide 16.2 meq/L (21.0-32.0); Chloride 108 meq/L (98-107); Glomerular Filtration Rate 72 mL/min (>89); Glucose,Random 86 mg/dL (74-106); Magnesium 2.6 mg/dL (1.5-2.5); Potassium 3.8 meq/L (3.5-5.1); Sodium 140 meq/L (136-145)
[2018-04-25 14:46] LABS: Alkaline Phosphatase 68 U/L (45-117); Blood Urea Nitrogen 19 mg/dL (7-18); Creatine Kinase 271 U/L (39-308); Total Protein 7.4 g/dL (6.4-8.2)
[2018-04-25] MEDS ORDERED: levETIRAcetam 1000mg/100mL Inj 100 ML IV.SIG ONE (15:54)
--- NOTE | 2018-04-25 16:26 | CT ---
EXAM DATE: 04/25/2018 4:23 PM EST AGE/SEX: 57 years / Male INDICATIONS: Altered mental status. CLINICAL DATA: This is the patient's initial encounter. Patient reports that signs and symptoms have been present for 1 day and indicates a pain score of 0/10. MEDICAL/SURGICAL HISTORY: Seizures. spinal meningitis None. RADIATION DOSE: 56.35 CTDI (mGy) COMPARISON: [facility] [place] BRAIN W/O CONTRAST, 09/27/2017. . TECHNIQUE: CT of the head without contrast. Using automated exposure control and adjustment of the mA and/or kV according to patient size, radiation dose was kept as low as reasonably achievable to ob tain optimal diagnostic quality images. DICOM format image data is available electronically for revi ew and comparison. FINDINGS: Cerebrum: The ventricles are normal for age. No evidence of midline shift, mass lesion, hemorrhage or acute infarction. No extraaxial fluid collections are seen. Posterior Fossa: The cerebellum and brainstem are intact. The 4th ventricle is midline. The cerebe llopontine angle is unremarkable. Extracranial: The visualized portion of the orbits is intact. Skull: The calvaria is intact. No evidence of skull fracture. CONCLUSION: Negative noncontrast head CT. . Electronically signed by: Kiet Fall MD 04/25/2018 4:25 PM EST
--- NOTE | 2018-04-25 16:34 | CT ---
EXAM DATE: 04/25/2018 4:27 PM EST AGE/SEX: 57 years / Male INDICATIONS: Shortness of breath. CLINICAL DATA: This is the patient's initial encounter. Patient reports that signs and symptoms have been present for 1 day and indicates a pain score of 0/10. MEDICAL/SURGICAL HISTORY: Seizures. spinal meningitis None. RADIATION DOSE: 9.96 CTDI (mGy) COMPARISON: No prior exams available for comparison. TECHNIQUE: Volumetric scanning was performed using a multi-row detector CT scanner during bolus infu jenny of 70 ml Omnipaque 350 (iohexol) nonionic water-soluble contrast as a single exam dose. The lorraine a was post processed with a variety of visualization algorithms including full volume maximum intensi ty projection and sliding thin slab reformation. Using automated exposure control and adjustment of the mA and/or kV according to patient size, radiation dose was kept as low as reasonably achievable t o obtain optimal diagnostic quality images. DICOM format image data is available electronically for review and comparison. FINDINGS: There is no pulmonary embolus. Minimal dependent atelectasis of both lower lobes. No pneumonia, effus ion or pneumothorax. There is mild emphysema. No lymphadenopathy. Heart size within normal limits. Coronary artery calcification noted. CONCLUSION: 1. No pulmonary embolus. 2. Minimal dependent atelectasis of both bases. No pneumonia. 3. Mild emphysema. 4. Coronary artery calcification. Electronically signed by: Kiet Fall MD 04/25/2018 4:32 PM EST
[2018-04-25] MEDS ORDERED: Acetaminophen 325 MG Tablet PO PRN (17:19)
[2018-04-25] MEDS ORDERED: Bisacodyl 10 MG Supp RECTAL PRN (17:19)
--- NOTE | 2018-04-25 17:49 | P.HPIM ---
History of Present Illness Service: [facility] Primary Care Physician: No Primary Care Physician Chief Complaint: seizure activity History of Present Illness: Patient is a 57-year-old male with past medical history of Seizure, spinal meningitis, current daily smoker, bilateral knee cartilage repair and hernia repair, presented to the emergency department for evaluation of possible seizure and altered mental status. ED report stated patient lives at a homeless camp, a friend stated to EMS that patient stood up, he then fell to the ground and started shaking. Patient does not remember the event. He presents complaining of being dehydrated and tired. Patient seen and examined in the ED, still post ictal and drifting to sleep with assessments. Patient stated he is feeling dehydrated. Patient stated does not remember what happened to him. Just remember that he was outside. Patient stated he had seizure happened once before. Patient denies any headache or dizziness, denies any pain or shortness of breath. Patient denies abdominal pain , nausea, vomiting, diarrhea or constipation. Patient denies any fever or chills.Patient admitted to be smoking daily but unable to identify how much. Patient admitted alcohol use when he can, last time use was last night. - Diagnosis (1) Seizure (2) Post-ictal state Review of Systems All other systems reviewed negative except as stated [facility] - History History Provided By: Patient, Cloth Folder Hand / EMT - Medical History Medical History: Medical History (Last Updated 04/25/18 @ 18:00 by JOAQUIN Gallardo) Derangement of meniscus of both knees Meningitis spinal Seizure - Surgical History Surgical History: Surgical History (Last Updated 04/25/18 @ 18:00 by JOAQUIN Gallardo) H/O hernia repair - Social History I have reviewed the patient's Social History: Yes - Tobacco History Second Hand Smoke Exposure: Yes Tobacco Use In Past 30 Days: Yes Smoking Status: Current every day smoker Tobacco Type: Cigarettes - Alcohol History How Often Do You Have a Drink Containing Alcohol: Never - Substance Use History Substance History: No History of Abuse - Travel History Recent Travel in the [place] Within the Last 8 Weeks: No Recent Travel Out of the Country Within the Last 8 Weeks: No - Immunization History Tetanus Immunization: <5 Years Medications and Allergies Active Medications: Active Medications Acetaminophen (Tylenol) 650 mg PO Q4H PRN PRN Reason: Temp > 100.4 Al Hydroxide/Mg Hydroxide (Milk Of Magnesia Liq) 30 ml PO Q12H PRN PRN Reason: Mild Constipation Bisacodyl (Dulcolax Supp) 10 mg RECTAL DAILY PRN PRN Reason: SEVERE CONSITIPATION Sodium Chloride (Ns Inj) 1,000 mls @ 100 mls/hr IV.CONT .Q10H [facility] Stop: 04/26/18 18:00 Lactulose (Lactulose Liq) 30 ml PO DAILY PRN PRN Reason: SEVERE CONSITIPATION Lorazepam (Ativan Inj) 2 mg IV.PUSH Q15M PRN PRN Reason: SEIZURES Ondansetron HCl (Zofran Inj) 4 mg IV.PUSH Q6H PRN PRN Reason: NAUSEA OR VOMITING Senna/Docusate Sodium (Andreina-Colace) 1 tab PO BID [facility] Sennosides (Senokot) 17.2 mg PO Q12H PRN PRN Reason: Moderate Constipation Sodium Chloride (Ns Flush) 2 ml IV.FLUSH PRN PRN PRN Reason: FLUSH AFTER USING IV ACCESS Last Admin: 04/25/18 14:35 Dose: 2 ml Allergies Allergy/AdvReac Type Severity Reaction Status Date / Time No Known Allergies Allergy Verified 04/25/18 13:35 Home Medications Medication Instructions Recorded Confirmed Type No Known Home Medications 04/25/18 04/25/18 History Exam Vital signs: Vital Signs 04/25/18 13:35 04/25/18 16:54 Temperature 98.4 F Pulse Rate 113 H 82 Respiratory Rate 22 24 Blood Pressure 128/63 113/68 Pulse Oximetry 92 L 93 L Intake & Output 04/24/18 04/25/18 04/25/18 18:59 06:59 18:59 Intake Total 1100 / 1100 Balance 1100 / 1100 Intake: IV 1100 / 1100 NS Inj 1,000 ML @ 1000 mls/hr 1000 / 1000 IV.SIG BOLUS [facility] Rx#:[id number] Keppra 1000 mg/100 mL Premix 100 / 100 100 ML @ 400 mls/hr IV.SIG ONCE ONE Rx#:[id number] Narrative: GENERAL: well developed, ill looking Caus=casian male, in post ictal state SKIN: Warm and dry. HEAD: Atraumatic. Normocephalic. EYES: Pupils equal and round. No scleral icterus. No injection or drainage. ENT: No nasal bleeding or discharge. Mucous membranes pink and moist. NECK: Trachea midline. No JVD. CARDIOVASCULAR: Regular rate and rhythm. RESPIRATORY: No accessory muscle use. Clear to auscultation. Breath sounds equal bilaterally. GASTROINTESTINAL: Abdomen soft, non-tender, nondistended. Hepatic and splenic margins not palpable. MUSCULOSKELETAL: Extremities without clubbing, cyanosis, or edema. No obvious deformities. NEUROLOGICAL: Awake and alert but drifting to sleep. No obvious cranial nerve deficits. Motor grossly within normal limits. Moving all for extremities with limited hand pharmacist. Normal speech. PSYCHIATRIC: flat mood and affect; insight and judgment poor Results - Labs CBC & Chem 7: 04/25/18 13:47 04/25/18 13:47 Labs: Short CBC 04/25/18 Range/Units 13:47 WBC 11.6 H (4.0-11.0) th/mm3 Hgb 13.5 (13.0-17.0) gm/dL Hct 40.3 (39.0-51.0) % Plt Count 322 (150-450) th/mm3 BMP 04/25/18 13:47 Sodium 140 Potassium 3.8 Chloride 108 H Carbon Dioxide 16.2 L BUN 19 H Creatinine 1.05 Calcium 8.8 Cardiac Enzymes 04/25/18 Range/Units 13:47 Total Creatine Kinase 271 (39-308) U/L Troponin I Less than 0.02 L (0.02-0.05) ng/mL Liver Function 04/25/18 Range/Units 13:47 Total Bilirubin 0.2 (0.2-1.0) mg/dL AST 19 (15-37) U/L ALT 20 (12-78) U/L Alkaline Phosphatase 68 (45-117) U/L Albumin 3.2 L (3.4-5.0) g/dL - Imaging Impressions Chest X-Ray 04/25/18 13:30 CONCLUSION: Prominence in interstitium likely related to pulmonary venous hypertension or mild edema. Some increased density could be secondary to compressive changes given the poor inspiratory effort. Head CT 04/25/18 13:30 CONCLUSION: Negative noncontrast head CT. . Abdomen X-Ray 04/25/18 13:33 CONCLUSION: Nonspecific 0.5 cm calcification at the left pelvis. Degenerative change in the lower lumbar spine. Chest CTA 04/25/18 14:19 CONCLUSION: 1. No pulmonary embolus. 2. Minimal dependent atelectasis of both bases. No pneumonia. 3. Mild emphysema. 4. Coronary artery calcification. Caprini VTE Risk Assessment Caprini VTE Risk Assessment: No/Low Risk (score <= 1) Caprini Risk Assessment Model: Point Value = 1 Point Value = 2 Point Value = 3 Point Value = 5 Age 41-60 Minor surgery BMI > 25 kg/m2 Swollen legs Varicose veins or History of unexplained or recurrent spontaneous Oral contraceptives or hormone replacement Sepsis (< 1 month) Serious lung disease, including pneumonia (< 1 month) Abnormal pulmonary function Acute myocardial infarction Congestive heart failure (< 1 month) History of inflammatory bowel disease Medical patient at bed rest Age 61-74 Arthroscopic surgery Major open surgery (> 45 min) Laparoscopic surgery (> 45 min) Malignancy Confined to bed (> 72 hours) Immobilizing plaster cast Central venous access Age >= 75 History of VTE Family history of VTE Factor V Leiden Prothrombin [id number] Lupus anticoagulant Anticardiolipin antibodies Elevated serum homocysteine Heparin-induced thrombocytopenia Other congenital or acquired thrombophilia Stroke (< 1 month) Elective arthroplasty Hip, pelvis, or leg fracture Acute spinal cord injury (< 1 month) Prophylaxis Regimen: Total Risk Factor Score Risk Level Prophylaxis Regimen 0-1 Low Early ambulation 2 Moderate Order ONE of the following: *Sequential Compression Device (SCD) *Heparin 5000 units SQ BID 3-4 Higher Order ONE of the following medications: *Heparin 5000 units SQ TID *Enoxaparin/Lovenox 40 mg SQ daily (WT < 150 kg, CrCl > 30 mL/min) *Enoxaparin/Lovenox 30 mg SQ daily (WT < 150 kg, CrCl > 10-29 mL/min) *Enoxaparin/Lovenox 30 mg SQ BID (WT < 150 kg, CrCl > 30 mL/min) AND/OR *Sequential Compression Device (SCD) 5 or more Highest Order ONE of the following medications: *Heparin 5000 units SQ TID (Preferred with Epidurals) *Enoxaparin/Lovenox 40 mg SQ daily (WT < 150 kg, CrCl > 30 mL/min) *Enoxaparin/Lovenox 30 mg SQ daily (WT < 150 kg, CrCl > 10-29 mL/min) *Enoxaparin/Lovenox 30 mg SQ BID (WT < 150 kg, CrCl > 30 mL/min) AND *Sequential Compression Device (SCD) Assessment and Plan - Assessment (1) Seizure Code(s): R56.9 - Unspecified convulsions Status: Acute (2) Post-ictal state Code(s): R56.9 - Unspecified convulsions Status: Acute - Plan This Patient is a 57-year-old male with past medical history of Seizure, spinal meningitis, current daily smoker, bilateral knee cartilage repair and hernia repair, presented to the emergency department for evaluation of possible seizure and altered mental status. Seizure Activity Post-Ictal state Altered Mental Status -CT Head: Negative noncontrast head CT. -Chest CTA: No pulmonary embolus. Minimal dependent atelectasis of both bases. No pneumonia. Mild emphysema. Coronary artery calcification. -Chest Xray: Prominence in interstitium likely related to pulmonary venous hypertension or mild edema. Some increased density could be secondary to compressive changes given the poor inspiratory effort. -Alcohol level : less than 3 -Ammonia level 19 -Neurology consulted, appreciate assistance -Ativan ordered prn for seizure activity - VS stable, BP 113/68, HR 82, SPO2 100% in RA -neuro checks Slight Leukocytosis -no fever or c hills -send urine for UA with C & S if indicated -recheck CBC, monitor signs and symptoms Tobaccoism -counseling on smoking cessation -plan on starting on Nicotine patch DVT Prophylaxis: SCD's Code Status: full code Discussed Condition With: patient and Nurse Dr Palacios
[2018-04-25] MEDS: Sod Chloride 0.9% Inj 1,000 ML IV.CONT SCH (20:39)
[2018-04-25] MEDS: Senna/Docusate Sodium 8.6/50 MG Tablet PO SCH (20:39)
[2018-04-26] MEDS: Sod Chloride 0.9% Inj 1,000 ML IV.CONT SCH ×2 (05:16→16:05)
[2018-04-26 08:34] LABS: Baso % (Auto) 0.5 % (0.0-2.0); Eos # (Auto) 0.1 th/mm3 (0.0-0.4); Eos % (Auto) 1.4 % (0.0-4.0); Hematocrit 34.8 % (39.0-51.0); Hemoglobin 11.7 gm/dL (13.0-17.0); Lymph % (Auto) 25.5 % (9.0-44.0); Mean Corpuscular HGB Conc 33.7 % (32.0-36.0); Mean Corpuscular Volume 86.1 fL (80.0-100.0); Mean Platelet Volume 8.2 fL (7.0-11.0); Mono # (Auto) 0.8 th/mm3 (0.0-0.9); Mono % (Auto) 10.5 % (0.0-8.0); Neut # (Auto) 4.8 th/mm3 (1.8-7.7); Neut % (Auto) 62.1 % (16.0-70.0); Platelet Count 289 th/mm3 (150-450); Red Blood Count 4.05 mil/mm3 (4.50-5.90); Red Cell Distribution Width 15.2 % (11.6-17.2); White Blood Count 7.7 th/mm3 (4.0-11.0)
[2018-04-26 09:00] LABS: Anion Gap 8 meq/L (5-15); Blood Urea Nitrogen 11 mg/dL (7-18); Calcium 8.3 mg/dL (8.5-10.1); Carbon Dioxide 21.1 meq/L (21.0-32.0); Chloride 114 meq/L (98-107); Glomerular Filtration Rate Greater Than 89 mL/min (>89); Glucose,Random 90 mg/dL (74-106); Sodium 143 meq/L (136-145)
--- NOTE | 2018-04-26 09:25 | MB ---
cc: Ricardo Espinoza MD DATE: 04/26/2018 HISTORY OF PRESENT ILLNESS: A 57-year-old right-handed man with hypertension. Otherwise, he has not had any major medical problems. He is, however, homeless, although he denies alcohol use. He had a seizure that was witnessed in 09/2017 and then had another one and was admitted here. He tells me he had spinal meningitis as a and a concussion when he was a child, but not as an adult. According to EMS, a friend had stated that he stood up, fell to the ground and start shaking. He did not remember the event. REVIEW OF SYSTEMS: He denies any diabetes, hypercholesterolemia, AR, CABG, stent, angioplasty, atrial fibrillation, Coumadin, renal, hepatic or pulmonary disease, thyroid disease, lupus, cancer, or stroke. SOCIAL HISTORY: He is a smoker. He denies drinking except for an occasional beer to help him sleep. [place] [address] FAMILY HISTORY: Negative for cancer, seizure or stroke. MEDICATIONS: None. PHYSICAL EXAMINATION: VITAL SIGNS: On exam now, afebrile, 73, 20, 105/82 to 86/57 and even 80/52, although these are not standing blood pressures. NECK: There were no carotid bruits. HEART: Regular rhythm. I did not detect a murmur. NEUROLOGIC: Pupils are equal. Vision is full. Extraocular movements intact without nystagmus. Face is symmetric with normal sensation. Tongue was midline. There was no drift. He has normal strength in upper and lower extremities bilaterally. DTRs trace throughout. Toes downgoing bilaterally. Pinprick is intact throughout including the occiput. He is not ataxic on [id number]. Gait steady. Speech is fluent. He knows the month and the year, but has some difficulty just relaying his story. It seems like he has some slight psychiatric problem. LABORATORY DATA: CBC here is normal. Coagulation studies normal. Basic metabolic profile is normal here. Glucose 86. LFTs normal. Magnesium 2.6, phosphorus, calcium normal, ammonia level. Troponin normal. B12 low normal in 09/2017 at 229. Folate, TSH normal. Urine drug screen negative x2. UA negative in 09/2017. Urine drug screen negative on the last admission. Blood alcohol negative twice. CPK and troponin were negative. He had a CAT scan of his brain that was read as normal. He had a CTA of his chest which showed no pulmonary embolism, mild emphysema, some coronary artery calcification, though he denies any chest pain. He also denies a headache. He had an EEG done in 09/2017. Bilateral parietal sharps were noted with some phase reversal. IMPRESSION: Two seizures now this year. We will put him on Keppra. He needs some social work coordinator help as far as getting refills on Keppra. We will check an EEG and an MRI here. Will give him a B12 shot. Check a few other blood tests. I would recommend having psychiatry see him, as he does not appear to be an alcoholic, possibly more of a psychiatric issue that he is homeless. If his MRI is negative and psychiatry clears him and his blood work looks fine, and then he can get some kind of setup so that he can get refills on his Keppra, he could be discharged later after his EEG is done. We will also check orthostatic blood pressures, as a syncopal episode from low blood pressure could also be involved here. Also with the low blood pressure, we will check an echo on him also. So, that should be cleared before discharge also. I will order a carotid ultrasound. MD DAREK Martínez/yamilex/shyann , 08:50 AM , 09:00 AM
[2018-04-26] MEDS: levETIRAcetam 500 MG Tablet PO SCH ×2 (09:51→20:56)
[2018-04-26] MEDS: Senna/Docusate Sodium 8.6/50 MG Tablet PO SCH ×2 (09:51→20:56)
[2018-04-26] MEDS ORDERED: Gadobutrol PF 7.5 MMOL/7.5 ML Vial (for RAD) IV.SIG ONE (12:04)
--- NOTE | 2018-04-26 12:37 | MR ---
EXAM DATE: 04/26/2018 12:14 PM EST AGE/SEX: 57 years / Male INDICATIONS: Altered mental status. Seizures. CLINICAL DATA: This is the patient's subsequent encounter. Patient reports that signs and symptoms h ave been present for 2 days and indicates a pain score of 3/10. MEDICAL/SURGICAL HISTORY: Seizures. spinal meningitis . hernia repair [place] [facility] [place]/2018. . TECHNIQUE: Multiplanar, multisequence examination of the brain was performed without and with 7 ml Ga davist (gadobutrol) contrast as a single exam dose. FINDINGS: Cerebrum: The ventricles are normal for age. No evidence of midline shift, mass lesion, hemorrhage or acute infarction. No extraaxial fluid collections are seen. The pituitary gland and suprasellar cistern are normal in configuration. White Matter: No significant signal abnormalities are seen in the white matter. Posterior Fossa: The cerebellum and brainstem are intact. The 4th ventricle is midline. The cerebel lopontine angle is unremarkable. The cerebellar tonsils are normal in position. Diffusion Imaging: No focal areas of restricted diffusion are seen. No evidence of acute infarction . Extracranial: The visualized portions of the orbits and paranasal sinuses are unremarkable. Post Contrast: No abnormal areas of parenchymal or dural enhancement. No evidence of blood-brain ba rrier breakdown. CONCLUSION: 1. Negative MR Brain with and without contrast. 2. No evidence of acute infarct, hemorrhage, mass or edema. 3. No evidence of enhancing intra-axial or extra-axial lesions. Electronically signed by: Yfn Spaulding MD 04/26/2018 12:36 PM EST
--- NOTE | 2018-04-26 15:09 | P.PNIM ---
Subjective Interval history: Patient has no specific complaints. He has no recollection of what happened but says he was told he had a seizure. Interval hx-no observed seizure while on floor so far. Physical Exam Vital signs: Last Vital Signs Temp 98.6 F 04/26/18 12:00 Pulse 75 04/26/18 12:56 Resp 16 04/26/18 12:56 BP 112/66 04/26/18 12:56 Pulse Ox 95 04/26/18 12:56 Intake & Output 04/24/18 04/25/18 04/26/18 04/27/18 06:59 06:59 06:59 06:59 Intake Total 2049 Balance 2049 Narrative: GENERAL: well developed man, in no acute distress,in fair gc. SKIN: Warm and dry. HEENT: not pale,anicteric. NECK:supple. No JVD. CARDIOVASCULAR: Regular rate and rhythm. RESPIRATORY: No accessory muscle use. Clear to auscultation. Breath sounds equal bilaterally. GASTROINTESTINAL: Abdomen soft, non-tender, nondistended. Hepatic and splenic margins not palpable. MUSCULOSKELETAL: Extremities without clubbing, cyanosis, or edema. No obvious deformities. NEUROLOGICAL: Awake and alert.no focal deficits. PSYCHIATRIC: flat mood and affect; insight and judgment poor Results Labs CBC & Chem 7: 04/26/18 08:11 04/26/18 08:11 Imaging Imaging: Impressions Head CT 04/25/18 13:30 CONCLUSION: Negative noncontrast head CT. . Chest CTA 04/25/18 14:19 CONCLUSION: 1. No pulmonary embolus. 2. Minimal dependent atelectasis of both bases. No pneumonia. 3. Mild emphysema. 4. Coronary artery calcification. Head MRI 04/26/18 08:46 CONCLUSION: 1. Negative MR Brain with and without contrast. 2. No evidence of acute infarct, hemorrhage, mass or edema. 3. No evidence of enhancing intra-axial or extra-axial lesions. Assessment and Plan (1) Seizure: Code(s): R56.9 - Unspecified convulsions Status: Acute (2) Post-ictal state: Code(s): R56.9 - Unspecified convulsions Status: Acute Plan 57 yo M with h/o HTN, prior h/o seizure in 09/2017, presented with a seizure. MRI brain is negative. EEG still pending. Has been seen by the neurologist, started on Keppra 500mg bid, B12 and thiamine. Psychiatry consult pending. Progress Note: Quality VTE Deep Vein Thrombosis/Pulmonary Embolism Present on Admission: No
--- NOTE | 2018-04-26 15:28 | P.CONPSY ---
Provisional Diagnosis Admission Date: April 25, 2018 17:15 [place] I.: Psychological behavioral factors associated with disorders or diseases classified elsewhere [place] III.: Seizure disorder History of Present Illness Service: Psychiatry Consult date: 04/27/18 Reason for Consult: Michelle schmitz Primary Care Provider: No Primary Care Physician Chief Complaint: seizure activity History of Present Illness: Patient is a 57-year-old man, single, homeless, unemployed, with no formal past psychiatric history, no previous psychiatric diagnosis, psychiatric consultation, suicide attempt or self injurious behavior, with a substance use history significant for occasional alcohol use, denies any drug use, with a past medical history for seizure disorder was brought into the ED for evaluation of seizures and altered mental status which psychiatry was consulted for evaluation. Patient was found sitting in hospital bed noted to be calm and cooperative. Patient noted with occasional tangential comments but no fluctuation of consciousness, has not tolerated. During interview with fair constructional reality. He been homeless for several years and focused at times during interview with this relationship discord with siblings. Patient states not recall events prior to his admission stating that he does not know the events that led up to being brought to the hospital but did recall falling. Patient states "maybe I did pass out". Patient is alert and oriented to person place and date at this time. Patient denies any perceptual disturbances denies any depressive manic or psychotic symptoms at this time Family psychiatric history: Denies Past Psychiatric history: No previous psychiatric diagnosis, no prior psychiatric admissions, no prior suicide attempts or self injurious behavior. Patient reports remote psychiatric services as a child but was unable to recall details. Patient denies any previous psychotropic medication trials. Substance use history: Tobacco use, alcohol use 1 time per week usually 1 to Abuse denies any drug use. Past medical history: Seizure disorder, Allergies: NKDA Social history: Has been in [place] since 2007, refused to stay with his sister , single and unemployed. Review of Systems All other systems reviewed negative except as stated in HPI [facility] - History History Provided By: Patient, Medical Record - Medical History Medical History: Medical History (Last Updated 04/25/18 @ 18:00 by JOAQUIN Gallardo) Derangement of meniscus of both knees Meningitis spinal Seizure - Surgical History Surgical History: Surgical History (Last Updated 04/25/18 @ 18:00 by JOAQUIN Gallardo) H/O hernia repair - Tobacco History Second Hand Smoke Exposure: Yes Tobacco Use In Past 30 Days: Yes Smoking Status: Current every day smoker Tobacco Type: Cigarettes, Cigars - Alcohol History How Often Do You Have a Drink Containing Alcohol: 2 to 4 times a month - Substance Use History Substance History: No History of Abuse - Travel History Recent Travel in the [facility] Within the Last 8 Weeks: No Recent Travel Out of the Country Within the Last 8 Weeks: No - Immunization History Tetanus Immunization: <5 Years Medications and Allergies Active Medications: Active Medications Acetaminophen (Tylenol) 650 mg PO Q4H PRN PRN Reason: Temp > 100.4 Al Hydroxide/Mg Hydroxide (Milk Of Magnesia Liq) 30 ml PO Q12H PRN PRN Reason: Mild Constipation Bisacodyl (Dulcolax Supp) 10 mg RECTAL DAILY PRN PRN Reason: SEVERE CONSITIPATION Cyanocobalamin (Vitamin B12 Inj) 1,000 mcg SQ Q24H [facility] Stop: 04/28/18 13:01 Sodium Chloride (Ns Inj) 1,000 mls @ 100 mls/hr IV.CONT .Q10H [facility] Stop: 04/26/18 18:00 Last Admin: 04/26/18 05:16 Dose: 100 mls/hr Lactulose (Lactulose Liq) 30 ml PO DAILY PRN PRN Reason: SEVERE CONSITIPATION Levetiracetam (Keppra) 500 mg PO BID [facility] Last Admin: 04/26/18 09:51 Dose: 500 mg Lorazepam (Ativan Inj) 2 mg IV.PUSH Q15M PRN PRN Reason: SEIZURES Ondansetron HCl (Zofran Inj) 4 mg IV.PUSH Q6H PRN PRN Reason: NAUSEA OR VOMITING Senna/Docusate Sodium (Andreina-Colace) 1 tab PO BID [facility] Last Admin: 04/26/18 09:51 Dose: 1 tab Sennosides (Senokot) 17.2 mg PO Q12H PRN PRN Reason: Moderate Constipation Sodium Chloride (Ns Flush) 2 ml IV.FLUSH PRN PRN PRN Reason: FLUSH AFTER USING IV ACCESS Last Admin: 04/25/18 14:35 Dose: 2 ml Thiamine HCl (Vitamin B1) 100 mg PO BID [facility] Last Admin: 04/26/18 09:51 Dose: 100 mg Allergies Allergy/AdvReac Type Severity Reaction Status Date / Time No Known Allergies Allergy Verified 04/25/18 13:35 Home Medications Medication Instructions Recorded Confirmed Type No Known Home Medications 04/25/18 04/25/18 History Exam Vital signs: Vital Signs 04/25/18 16:54 04/25/18 20:00 04/25/18 21:05 Temperature 97.6 F Pulse Rate 82 76 Respiratory Rate 24 18 Blood Pressure 113/68 80/52 L 100/58 L Pulse Oximetry 93 L 95 04/25/18 22:44 04/25/18 23:25 04/26/18 04:00 Temperature 98.7 F 99 F Pulse Rate 93 H 90 Respiratory Rate 16 16 Blood Pressure 106/65 86/57 L Pulse Oximetry 95 96 93 L 04/26/18 07:48 04/26/18 07:59 04/26/18 08:00 Temperature 98.2 F Pulse Rate 73 Respiratory Rate 20 Blood Pressure 105/62 Pulse Oximetry 95 90 L 96 04/26/18 12:00 04/26/18 12:55 04/26/18 12:56 Temperature 98.6 F Pulse Rate 70 77 75 Respiratory Rate 16 16 16 Blood Pressure 122/77 120/77 112/66 Pulse Oximetry 94 L 96 95 Intake & Output 04/25/18 04/26/18 04/26/18 18:59 06:59 18:59 Intake Total 1100 / 1100 950 / 950 Balance 1100 / 1100 950 / 950 Intake: IV 1100 / 1100 950 / 950 NS Inj 1,000 ML @ 100 mls/hr IV 950 / 950 .CONT .Q10H [facility] Rx#:[id number] NS Inj 1,000 ML @ 1000 mls/hr 1000 / 1000 IV.SIG BOLUS [facility] Rx#:[id number] Keppra 1000 mg/100 mL Premix 100 / 100 100 ML @ 400 mls/hr IV.SIG ONCE ONE Rx#:[id number] Narrative: Patient not noted to be in acute distress, no gross motor abnormalities, no signs of tremor or EPS, no psychomotor agitation or retardation. - Constitutional no acute distress, cooperative Mental Status Examination Appearance: Disheveled Consciousness: Alert Orientation: Person, Place, Date/Time Motor Activity: Normal gait Speech: Unremarkable Language: Adequate Fund of Knowledge: Poor Attention and Concentration: Adequate Memory: Impaired (Surrounding events prior to his admission.) Mood: Appropriate Affect: Appropriate Thought Process & Associations: Intact, Goal directed, Linear Thought Content: Appropriate Hallucination Type: None Delusion Type: None Suicidal Ideation: No Suicidal Plan: No Suicidal Intention: No Homicidal Ideation: No Homicidal Plan: No Homicidal Intention: No Insight: Adequate Judgment: Adequate Assessment and Plan - Assessment (1) Psychological and behavioral factors associated with disorders or diseases classified elsewhere Code(s): F54 - Psychological and behavioral factors associated with disorders or diseases classified elsewhere Status: Acute (2) Seizure Code(s): R56.9 - Unspecified convulsions Status: Acute - Plan Plan: Estimated LOS: [] days Patient is a 57-year-old man, homeless, single, no children, with no formal past psychiatric history, no prior psychiatric diagnoses, hospitalization , suicide attempt or self-injurious behavior, with a past medical history significant for history of seizures which patient was brought into the ER for possible seizure and altered mental status and psychiatry was consulted for evaluation. Patient with no acute psychiatric symptoms and requires inpatient level of care nor any acute symptoms that require psychopharmacological intervention at this time. Patient would benefit from social work assessment for social service he may benefit from. Consult appreciated. Justification for Continued Inpatient Stay: Patient is psychiatrically cleared.
--- NOTE | 2018-04-26 16:01 | ECHRPT ---
Indication: SYNCOPE CONCLUSIONS Normal left ventricular size. Wall thickness is normal. The left ventricular systolic function is normal with an estimated ejection fraction in the range of 55-60%. Calcification of the anterior mitral valve leaflet. Trace mitral valve regurgitation. There is mild tricuspid valve regurgitation. BP: / HR: Rhythm: MEASUREMENTS (Male / Female) Normal Values Technical Quality: 2D ECHO LV Diastolic Diameter PLAX 4.8 cm 4.2 - 5.9 / 3.9 - 5.3 cm LV Systolic Diameter PLAX 3.5 cm IVS Diastolic Thickness 0.9 cm 0.6 - 1.0 / 0.6 - 0.9 cm LVPW Diastolic Thickness 1.0 cm 0.6 - 1.0 / 0.6 - 0.9 cm LV Relative Wall Thickness 0.4 RV Internal Dim ED PLAX 2.2 cm LVOT Diameter 2.1 cm Aortic Root Diameter 3.4 cm LA Systolic Diameter LX 3.0 cm 3.0 - 4.0 / 2.7 - 3.8 cm M-MODE AV Cusp Separation MM 2.3 cm DOPPLER AV Peak Velocity 136.0 cm/s AV Peak Gradient 7.4 mmHg LVOT Peak Velocity 106.0 cm/s LVOT Peak Gradient 4.5 mmHg AV Area Cont Eq pk 2.7 cm Mitral E Point Velocity 55.5 cm/s Mitral A Point Velocity 50.3 cm/s Mitral E to A Ratio 1.1 LV E' Lateral Velocity 9.6 cm/s Mitral E to LV E' Lateral Ratio 5.8 TR Peak Velocity 216.0 cm/s TR Peak Gradient 18.7 mmHg Right Atrial Pressure 10.0 mmHg Pulmonary Artery Systolic Pressu 28.7 mmHg Right Ventricular Systolic Press 28.7 mmHg PV Peak Velocity 67.6 cm/s PV Peak Gradient 1.8 mmHg FINDINGS LEFT VENTRICLE Normal left ventricular size. Wall thickness is normal. The left ventricular systolic function is normal with an estimated ejection fraction in the range of 55-60%. RIGHT VENTRICLE Normal right ventricular size and systolic function. LEFT ATRIUM The left atrial size is normal. RIGHT ATRIUM The right atrial size is normal. ATRIAL SEPTUM Normal atrial septal thickness without atrial level shunting by limited color doppler interrogation. AORTA The aortic root and proximal ascending aorta are normal in size on limited imaging. MITRAL VALVE Calcification of the anterior mitral valve leaflet. Trace mitral valve regurgitation. AORTIC VALVE Trileaflet aortic valve. No aortic valve stenosis or regurgitation. TRICUSPID VALVE There is mild tricuspid valve regurgitation. PULMONARY VALVE No pulmonary valve regurgitation or stenosis. VESSELS The inferior vena cava is normal in size. PERICARDIUM No pericardial effusion. Colton Kendall MD, FACC, [facility] (Electronically Signed) Final Date:26 April 2018 16:01
--- NOTE | 2018-04-26 17:24 | ECG ---
Date Performed: 04/25/2018 Time Performed: 13:36:47 PTAGE: 57 years EKG: SINUS TACHYCARDIA POSSIBLE LEFT ATRIAL ENLARGEMENT NONSPECIFIC ST & T-WAVE ABNORMALITY ABNO RMAL RHYTHM ECG PREVIOUS TRACING 09/27/17 Since the previous tracing, no significant change noted DOCTOR: Masoud Hickey Interpretating Date/Time 04/26/2018 17:22:45
--- NOTE | 2018-04-26 18:54 | US ---
EXAM DATE: 04/26/2018 6:41 PM EST AGE/SEX: 57 years / Male INDICATIONS: Syncope. CLINICAL DATA: This is the patient's initial encounter. Patient reports that signs and symptoms have been present for 1 day and indicates a pain score of 0/10. MEDICAL/SURGICAL HISTORY: . Seizures. Spinal meningitis. Derangement of bilateral meniscus. . Hernia repair. COMPARISON: No prior exams available for comparison. VELOCITY PARAMETERS: ICA/CCA Ratio: Right 1.2 , Left 1.5 ICA: Right 109 cm/sec, Left 135 cm/sec CCA: Right 94 cm/sec, Left 91 cm/sec ECA: Right 169 cm/sec, Left 183 cm/sec Vertebral: Right 39 cm/sec antegrade, Left 85 cm/sec antegrade FINDINGS: Right Carotid: Minimal plaque.The waveforms are within normal limits. Left Carotid: Mild calcified plaque. The waveforms are within normal limits. Other: None. CONCLUSION: 1. Right Internal Carotid Artery: Findings indicate <50% stenosis. 2. Left Internal Carotid Artery: Findings indicate <50% stenosis. Electronically signed by: Oscar Henson MD 04/26/2018 6:52 PM EST
--- NOTE | 2018-04-26 20:01 | MG ---
cc: Ricardo Espinoza MD ELECTROENCEPHALOGRAM NUMBER: [id number]. CLINICAL HISTORY: History of seizures, homeless man. MEDICATIONS: 1. Keppra. 2. Thiamine. DESCRIPTION: He is noted to fall asleep throughout the recording, some diffuse 7 Hz slowing is seen at the beginning of the recording. Some sleep spindles are noted and K complexes, as he is in stage II sleep to start the recording. No hemisphere asymmetries are noted. No epileptiform or seizure activity is seen. Hyperventilation is performed, without change in the background. He does wake up for that. Photic stimulation is performed without any posterior driving. IMPRESSION: Normal awake and stage II sleep electroencephalogram. No evidence for a focal or diffuse abnormality. Ricardo Espinoza MD DJM/ts , 07:13 PM , 07:17 PM
--- NOTE | 2018-04-27 08:19 | P.PNNEU ---
Subjective Subjective Comments: no new co Active Medications: Active Medications Acetaminophen (Tylenol) 650 mg PO Q4H PRN PRN Reason: Temp > 100.4 Al Hydroxide/Mg Hydroxide (Milk Of Magnesia Liq) 30 ml PO Q12H PRN PRN Reason: Mild Constipation Bisacodyl (Dulcolax Supp) 10 mg RECTAL DAILY PRN PRN Reason: SEVERE CONSITIPATION Cyanocobalamin (Vitamin B12 Inj) 1,000 mcg SQ Q24H [facility] Stop: 04/28/18 13:01 Last Admin: 04/26/18 16:04 Dose: 1,000 mcg Lactulose (Lactulose Liq) 30 ml PO DAILY PRN PRN Reason: SEVERE CONSITIPATION Levetiracetam (Keppra) 500 mg PO BID [facility] Last Admin: 04/26/18 20:56 Dose: 500 mg Lorazepam (Ativan Inj) 2 mg IV.PUSH Q15M PRN PRN Reason: SEIZURES Ondansetron HCl (Zofran Inj) 4 mg IV.PUSH Q6H PRN PRN Reason: NAUSEA OR VOMITING Senna/Docusate Sodium (Andreina-Colace) 1 tab PO BID [facility] Last Admin: 04/26/18 20:56 Dose: 1 tab Sennosides (Senokot) 17.2 mg PO Q12H PRN PRN Reason: Moderate Constipation Sodium Chloride (Ns Flush) 2 ml IV.FLUSH PRN PRN PRN Reason: FLUSH AFTER USING IV ACCESS Last Admin: 04/25/18 14:35 Dose: 2 ml Thiamine HCl (Vitamin B1) 100 mg PO BID [facility] Last Admin: 04/26/18 20:56 Dose: 100 mg Allergies/Adverse Reactions: Allergies Allergy/AdvReac Type Severity Reaction Status Date / Time No Known Allergies Allergy Verified 04/25/18 13:35 Physical Exam Vital signs: Vital Signs 04/26/18 12:00 04/26/18 12:55 04/26/18 12:56 Temperature 98.6 F Pulse Rate 70 77 75 Respiratory Rate 16 16 16 Blood Pressure 122/77 120/77 112/66 Pulse Oximetry 94 L 96 95 04/26/18 15:54 04/26/18 20:00 04/26/18 23:47 Temperature 98.1 F 98.6 F Pulse Rate 71 75 70 Respiratory Rate 16 16 19 Blood Pressure 94/63 L 101/55 L 115/70 Pulse Oximetry 94 L 93 L 93 L Intake & Output 04/26/18 04/27/18 04/27/18 18:59 06:59 18:59 Intake Total 1800 / 1800 1640 / 1640 Output Total 1000 / 1000 Balance 1800 / 1800 640 / 640 Intake: IV 1000 / 1000 1000 / 1000 NS Inj 1,000 ML @ 100 mls/hr IV 1000 / 1000 1000 / 1000 .CONT .Q10H [facility] Rx#:[id number] Oral 800 / 800 640 / 640 Output: Urine 1000 / 1000 Other: # Voids 3 Date of Last Bowel Movement 04/26/18 04/27/18 # Bowel Movements 1 1 Narrative: awake alert moving well Objective Laboratory Results - last 24 hr 04/26/18 04/26/18 04/26/18 08:11 08:11 08:11 WBC 7.7 RBC 4.05 L Hgb 11.7 L Hct 34.8 L MCV 86.1 MCH 29.0 MCHC 33.7 RDW 15.2 Plt Count 289 MPV 8.2 Neut % (Auto) 62.1 Lymph % (Auto) 25.5 Cook % (Auto) 10.5 H Eos % (Auto) 1.4 Baso % (Auto) 0.5 Neut # (Auto) 4.8 Lymph # (Auto) 2.0 Cook # (Auto) 0.8 Eos # (Auto) 0.1 Baso # (Auto) 0.0 WBC Differential . Differential Comment Auto diff final ESR 34 H Sodium 143 Potassium 4.0 Chloride 114 H Carbon Dioxide 21.1 Anion Gap 8 BUN 11 Creatinine 0.82 Estimated GFR Greater than 89 Random Glucose 90 Calcium 8.3 L Folate 04/26/18 09:44 WBC RBC Hgb Hct MCV MCH MCHC RDW Plt Count MPV Neut % (Auto) Lymph % (Auto) Cook % (Auto) Eos % (Auto) Baso % (Auto) Neut # (Auto) Lymph # (Auto) Cook # (Auto) Eos # (Auto) Baso # (Auto) WBC Differential Differential Comment ESR Sodium Potassium Chloride Carbon Dioxide Anion Gap BUN Creatinine Estimated GFR Random Glucose Calcium Folate 13.4 Review/Management - Review/Management Plan: imp us mri eeg echo labs all nl his bp at times in 90s plan is watch on tele to noon and if ok could dc on keppra 500 bid check more standing bp although neg so far
[2018-04-27 08:21] VITALS: RESP 16
[2018-04-27] MEDS: Senna/Docusate Sodium 8.6/50 MG Tablet PO SCH (09:38)
[2018-04-27] MEDS: levETIRAcetam 500 MG Tablet PO SCH (09:38)
--- NOTE | 2018-04-27 15:44 | P.PNIM ---
Subjective Interval history: no complaints. Physical Exam Vital signs: Last Vital Signs Temp 99.2 F 04/27/18 12:00 Pulse 71 04/27/18 12:00 Resp 16 04/27/18 12:00 BP 101/64 04/27/18 12:00 Pulse Ox 92 L 04/27/18 12:00 Intake & Output 04/25/18 04/26/18 04/27/18 04/28/18 06:59 06:59 06:59 06:59 Intake Total 2049 3440 / 3440 Output Total 1000 / 1000 Balance 2049 2440 / 2440 Results Labs CBC & Chem 7: 04/26/18 08:11 04/26/18 08:11 Imaging Imaging: Impressions Carotid Doppler Study 04/26/18 00:00 CONCLUSION: 1. Right Internal Carotid Artery: Findings indicate <50% stenosis. 2. Left Internal Carotid Artery: Findings indicate <50% stenosis. Assessment and Plan (1) Psychological and behavioral factors associated with disorders or diseases classified elsewhere: Code(s): F54 - Psychological and behavioral factors associated with disorders or diseases classified elsewhere Status: Acute (2) Seizure: Code(s): R56.9 - Unspecified convulsions Status: Acute Plan 57 yo M with h/o HTN, prior h/o seizure in 09/2017, presented with a seizure. MRI brain is negative. EEG unremarkable. no acute findings on telemetry. Has been seen by the neurologist, started on Keppra 500mg bid, B12 and thiamine. Psychiatry consult--patient with no psychiatric issues at this time. Patient clinically stable for discharge. Progress Note: Quality VTE Deep Vein Thrombosis/Pulmonary Embolism Present on Admission: No
[2018-04-27 16:09] VITALS: BP 106/64; PULSE 76; TEMP 99; O2SAT 93
[2018-04-29 11:15] LABS: Anti-Nuclear Antibody Screen Neg (Neg)
== END 2018-04-27 18:29 | disposition home or self-care (01) ==
LOC: NEDA 13:18 → NEPC 13:18 → NEPGCP 18:29 → NEDA 18:43 → NEPGCP 19:10
PROVIDERS: ADMIT Hospitalist; ATTEND Hospitalist
DX: F54 Psychological and behavioral factors associated with disorders or diseases classified elsewhere; I25.10 Atherosclerotic heart disease of native coronary artery without angina pectoris; E86.0 Dehydration; J43.9 Emphysema, unspecified; Z86.61 Personal history of infections of the central nervous system; I10 Essential (primary) hypertension; W19.XXXA Unspecified fall, initial encounter; G40.909 Epilepsy, unspecified, not intractable, without status epilepticus; R06.02 Shortness of breath; Z59.0 Homelessness; F17.210 Nicotine dependence, cigarettes, uncomplicated